=== PATIENT | female | born 1945 | race African-American/Black ===

== ENCOUNTER → 2017-09-25 | Outpatient (CLI) | payer BC ==
[~2017-09-25] MED LIST: BUPIVACAINE MPF 0.25% 10 ML VIAL.; IOHEXOL 180 MG/ML 10 ML VIAL.; methylPREDNISolone ACETATE 80 MG/ML VIAL.
== END ==
LOC: PNCL 12:44
DX: M16.11 Unilateral primary osteoarthritis, right hip (principal); E11.9 Type 2 diabetes mellitus without complications; I10 Essential (primary) hypertension; M19.90 Unspecified osteoarthritis, unspecified site
CPT/HCPCS: 20610; J1040; J3490; Q9965

== ENCOUNTER → 2017-12-13 | Outpatient (CLI) | payer BC ==
[~2017-12-13] MED LIST changes: +LIDOCAINE 1% PF 2 ML VIAL.
== END | disposition home or self-care (01) ==
LOC: PNCL 10:13
DX: M16.11 Unilateral primary osteoarthritis, right hip (principal); I10 Essential (primary) hypertension; E11.9 Type 2 diabetes mellitus without complications; Z79.84 Long term (current) use of oral hypoglycemic drugs; Z79.899 Other long term (current) drug therapy
CPT/HCPCS: 20610; 77002; J1040; J3490; Q9965

== ENCOUNTER → 2018-04-01 | Outpatient (CLI) | payer BC ==
[~2018-04-01] MED LIST changes: -BUPIVACAINE MPF 0.25% 10 ML VIAL.; +BUPIVACAINE MPF 0.25% 10 ML VIAL. ONE; +CHOL10003 PO; +DEXA5DRO OP; +DILT120C80 PO; +GLIP10TA13 PO; +GLIP5TAB10 PO; +GLUC100018 PO; -IOHEXOL 180 MG/ML 10 ML VIAL.; +IOHEXOL 180 MG/ML 10 ML VIAL. ONE; +LATA2.5D3 EACHEYE; -LIDOCAINE 1% PF 2 ML VIAL.; +LIDOCAINE 1% PF 2 ML VIAL. ONE; +LOSA100T7 PO; +METF10007 PO; +MULT1TAB52 PO; +PIOG30TA41 PO; +TIMO10DR5 EACHEYE; +TURM500C7 PO; -methylPREDNISolone ACETATE 80 MG/ML VIAL.; +methylPREDNISolone ACETATE 80 MG/ML VIAL. ONE
--- NOTE | 2018-04-01 19:57 | PAIN ---
DATE OF SERVICE: 04/01/2018 DIAGNOSES: Right hip joint pain with primary osteoarthritis, right hip joint. HISTORY OF PRESENT ILLNESS: The patient is a 73-year-old female who returns for followup status post right hip joint injection, last seen on 12/13/2017. The patient did very well with about an 80% improvement as she did with the first injection back in September. The patient reports the pain has been returning now with walking, standing, especially with putting all of her weight on her right side such as stepping on a stair or climbing on a curb. The patient reports it is becoming more noticeable with walking and standing. She was doing very well that is both with better ability to walk, stand, to household functions and activities with greater ease and comfort, but the pain is returning now to a moderate extent. The patient reports it is an 8 on a scale of 10 at its worst, 8 on average, 6 at its least and is an 8 today. The patient reports it is aching, dull, shooting, sharp, tight, sometimes cramping and stabbing, radiating to the right anterior groin with walking as well, better with sitting or lying down. It does not awaken the patient from sleep at all. The patient reports no new motor or sensory deficits, no new changes. PHYSICAL EXAMINATION: VITAL SIGNS: The patient's blood pressure is 134/81, pulse is 87, respirations are 18, temperature 98.0 degrees Fahrenheit, height is 5 feet 2 inches, weight is 197 pounds. GENERAL: The patient is awake, alert, oriented, appropriate, very pleasant demeanor. HEENT: Head is normocephalic, atraumatic. Extraocular movements intact and symmetrical. Oral cavity: Mucous membranes moist and pink. Dentition is intact. NECK: Shows anterior throat supple without palpable lymphadenopathy noted. Swallow reflex symmetrical. CHEST: Shows normal on inspection. Breath sounds clear to auscultation bilaterally. HEART: Shows S1, S2 clear. No murmurs auscultated. ABDOMEN: Soft, nontender, nondistended. No palpable organomegaly is noted. No rebound or guarding demonstrated. BACK: Shows spine grossly in the midline. Slight exaggeration of thoracic kyphosis and minor flattening of lumbar lordotic curvature. Lumbar paraspinous muscle shows symmetrical on inspection. On palpation shows some moderate tenderness only diffusely in the low lumbar distribution without significant radiation. The patient has good rotational motion of lumbar spine, both laterally as well as extension and flexion without difficulty. EXTREMITIES: The patient's lower extremities show deep tendon reflexes at 1+ in the patellar and tendo calcaneus tendons are equal. Motor exam is strong with 5/5 dorsiflexion, extension, quadriceps and hamstring flexion. Peripheral pulses are 1+ posterior tibia. No peripheral edema is noted bilaterally. The patient's right hip shows some moderate tenderness with palpation over the right greater trochanter, but only diffusely with weightbearing shows significant tenderness reported in the right hip and groin. Homero's maneuvers is positive on the right, but negative on the left. PLAN: Options were discussed with the patient. The patient's old chart was reviewed as her current medication regimen updated. Current review of systems updated today as well. We will proceed with a right intraarticular hip joint injection today with fluoroscopic guidance. Risks were again discussed including, but not limited to bleeding, infection, possibility of intravascular injection sequelae, spread of local anesthetic and numbness, side effects of steroid medication, exposure to fluoroscopy as well as poor results regarding pain control. The patient understands and wished to proceed. The patient is to return to clinic in approximately 2 weeks for followup. She was counseled to return appointment, activity level and side effects to be aware of. DIAGNOSES: Primary osteoarthritis, right hip joint with right hip joint pain. PROCEDURE: Right intraarticular hip joint injection using C-arm fluoroscopic guidance under sterile prep and drape using local anesthetic. MEDICATION INJECTED: A total of 80 mg Depo-Medrol plus 3 mL of 0.25% bupivacaine and 3 mL of Isovue for contrast. CONDITION AT DISCHARGE: Stable. The patient tolerated the procedure well, had no complications. LEIF MITCHELL MD DR: MATI/hafsa JOB#: [id number] / [id number]
== END | disposition home or self-care (01) ==
LOC: PNCL 08:09
PROVIDERS: ATTEND Anesthesiology
DX: M16.11 Unilateral primary osteoarthritis, right hip (principal)
CPT/HCPCS: 20610; 77002; J1040; J3490; Q9965

== ENCOUNTER → 2018-07-17 | Day surgery (SDC) | payer BC ==
[~2018-07-17] MED LIST changes: -BUPIVACAINE MPF 0.25% 10 ML VIAL. ONE; -DILT120C80 PO; +DILT120C85 PO; +HYDROmorphone 2 MG/ML VIAL IV PRN; -IOHEXOL 180 MG/ML 10 ML VIAL. ONE; +IV RINGERS,LACTATED 1000ML 1,000 ML IV SCH; +LIDOCAINE 1% PF 2 ML VIAL. ID PRN; -LIDOCAINE 1% PF 2 ML VIAL. ONE; +LOSA100T14 PO; -LOSA100T7 PO; +MORPHINE SULFATE 4 MG/ML VIAL. IV PRN; +ONDANSETRON PF 4 MG/2 ML VIAL. IV PRN; +PROCHLORPERAZINE 10 MG/2 ML VIAL. IV PRN; +PROPOFOL 20 ML IV ONE; +fentaNYL PF VIAL 100 MCG/2 ML VIAL IV PRN; -methylPREDNISolone ACETATE 80 MG/ML VIAL. ONE
[2018-07-17 08:11] VITALS: BP 150/67
== END | disposition home or self-care (01) ==
LOC: ENDOS 05:48
PROVIDERS: ATTEND Internal Medicine Gastroenterology
DX: K57.30 Diverticulosis of large intestine without perforation or abscess without bleeding (principal); K64.0 First degree hemorrhoids; E11.9 Type 2 diabetes mellitus without complications; M19.90 Unspecified osteoarthritis, unspecified site; Z72.0 Tobacco use; Z79.4 Long term (current) use of insulin; Z79.899 Other long term (current) drug therapy; Z98.890 Other specified postprocedural states; Z79.84 Long term (current) use of oral hypoglycemic drugs
CPT/HCPCS: 45378; J2704

== ENCOUNTER → 2018-08-12 | Outpatient (CLI) | payer BC ==
[2018-07-17 08:11] VITALS: BP 150/67
[~2018-08-12] MED LIST changes: +ASPI-630 PO; +CALC-658 PO; +FERR325T14 PO; -HYDROmorphone 2 MG/ML VIAL IV PRN; -IV RINGERS,LACTATED 1000ML 1,000 ML IV SCH; -LIDOCAINE 1% PF 2 ML VIAL. ID PRN; -MORPHINE SULFATE 4 MG/ML VIAL. IV PRN; -ONDANSETRON PF 4 MG/2 ML VIAL. IV PRN; -PROCHLORPERAZINE 10 MG/2 ML VIAL. IV PRN; -PROPOFOL 20 ML IV ONE; +SENN-161 PO; -TIMO10DR5 EACHEYE; +TIMO10DR5 RIGHTEYE; +WARF7.5T45 PO; -fentaNYL PF VIAL 100 MCG/2 ML VIAL IV PRN
[2018-08-12 09:28] LABS: BASO # 0.1 x10^3/uL (0.0-0.2); BASO % 1 % (0-3); EOS # 0.2 x10^3/uL (0.0-0.7); EOS % 3 % (0-3); HEMATOCRIT 33.3 % (36.0-47.0); HEMOGLOBIN 10.4 g/dL (12.0-15.5); LYMPH # 2.2 x10^3/uL (1.0-4.8); LYMPH % 30 % (24-48); MEAN CORPUSCULAR HEMOGLOBIN 22 pg (25-35); MEAN CORPUSCULAR HGB CONC 31 g/dL (31-37); MEAN CORPUSCULAR VOLUME 71 fL (79-100); MONO # 0.9 x10^3/uL (0.0-1.1); MONO % 12 % (0-9); NEUT # 3.8 x10^3uL (1.8-7.7); NEUT % 53 % (31-73); PLATELET COUNT 265 x10^3/uL (140-400); RED BLOOD COUNT 4.69 x10^6/uL (3.50-5.40); RED CELL DISTRIBUTION WIDTH 14.3 % (11.5-14.5); WHITE BLOOD COUNT 7.2 x10^3/uL (4.0-11.0)
[2018-08-12 09:42] LABS: PROTHROMBIN TIME PATIENT 13.1 SEC (11.7-14.0)
[2018-08-12 10:06] LABS: ALBUMIN 3.4 g/dL (3.4-5.0); CALCIUM 9.2 mg/dL (8.5-10.1); CREATININE 1.1 mg/dL (0.6-1.0); GFR 59.1; POTASSIUM 4.1 mmol/L (3.5-5.1)
[2018-08-12 10:42] LABS: HYPOCHROMIA PRESENT; MICROCYTOSIS PRESENT; PLT ESTIMATE ADEQUATE (ADEQUATE)
[2018-08-12 12:32] LABS: BILIRUBIN,URINE NEGATIVE (NEG); CLARITY,URINE CLOUDY; COLOR,URINE YELLOW; NITRITE,URINE NEGATIVE (NEG); PH,URINE 7.5; PROTEIN,URINE NEGATIVE (NEG-TRACE); UROBILINOGEN,URINE 0.2 mg/dL (0.2 mg/dL)
[2018-08-12 12:42] LABS: BACTERIA,URINE FEW /HPF (0-FEW); RBC,URINE 0 /HPF (0-2); SQUAMOUS EPITHELIAL CELL,UR MANY /LPF
--- NOTE | 2018-08-12 12:55 | EKG ---
[facility] [address] [place] [address] Test Date: 2018-08-12 Test Time: 12:49:43 Pat Name: HAMIDA SANCHEZ Department: Room: Gender: F Group Activities Aide: : 1945 Requested By: NANNETTE BLANTON Order Number: [id number] Reading MD: Wander Gutiérrez Measurements Intervals [place] Rate: 91 P: 47 WA: 150 QRS: 17 QRSD: 74 T: 26 QT: 354 QTc: 443 Interpretive Statements SINUS RHYTHM NONSPECIFIC ST-T WAVE CHANGES. LEFT ATRIAL ABNORMALITY Electronically Signed On 08-19-2018 10:12:04 CDT by Wander Gutiérrez
--- NOTE | 2018-08-12 14:26 | RAD ---
EXAM: Chest, 2 views. HISTORY: Hypertension. Preoperative evaluation. COMPARISON: None. FINDINGS: 2 views of chest are obtained. There is no infiltrate, pleural effusion or pneumothorax. The heart is normal in size. There are incidental bilateral cervical ribs. IMPRESSION: No acute pulmonary finding. Electronically signed by: Danielle Bradford MD (08/12/2018 2:23 PM) [id number]
[2018-08-13 02:16] LABS: HEMOGLOBIN A1C 6.4 % (4.8-5.6)
== END | disposition home or self-care (01) ==
LOC: SURGPAT 12:44
PROVIDERS: ATTEND Orthopaedic Surgery
DX: R94.31 Abnormal electrocardiogram [ECG] [EKG] (principal); M16.11 Unilateral primary osteoarthritis, right hip; I10 Essential (primary) hypertension
CPT/HCPCS: 36415; 71046; 80048; 81001; 82040; 83036; 85025; 85610; 85651; 85730; 87086; 87641; 93005

== ENCOUNTER 2018-08-27 05:51 | Inpatient (IN) | payer BC ==
[~2018-08-27] VITALS: Ht 162.6 cm; Wt 93.4 kg
[2018-08-27] VITALS (8 sets, daily range): BP systolic 133–165; BP diastolic 56–78
[~2018-08-27 05:51] MED LIST changes: -SENN-161 PO; -WARF7.5T45 PO
[2018-08-27] MEDS ORDERED: TRANEXAMIC ACID 1,000 MG in IV NS 50ML -- 1ST BAG INJ ONE (06:00)
[2018-08-27] MEDS ORDERED: HYDROcodone/APAP 7.5/325MG 1 TAB TABLET PO PRN (06:00)
[2018-08-27] MEDS ORDERED: MORPHINE SULFATE 5 MG, KETOROLAC 30MG VIAL 30 MG, ROPIVacaine 0.5% PF 60 ML, EPINEPHrin... INT ART ONE ×5 (06:00)
[2018-08-27] MEDS ORDERED: MORPHINE SULFATE 2 MG/ML VIAL. IV PRN ×2 (07:00→08:00)
[2018-08-27] MEDS ORDERED: ONDANSETRON PF 4 MG/2 ML VIAL. IV PRN (07:00)
[2018-08-27] MEDS ORDERED: HYDROmorphone 2 MG/ML VIAL IV PRN (07:00)
[2018-08-27] MEDS ORDERED: fentaNYL PF VIAL 100 MCG/2 ML VIAL IV PRN ×3 (07:00→08:00)
[2018-08-27] MEDS ORDERED: PROCHLORPERAZINE 10 MG/2 ML VIAL. IV PRN (07:00)
[2018-08-27] MEDS ORDERED: IV RINGERS,LACTATED 1000ML 1,000 ML IV SCH (07:00)
[2018-08-27] MEDS ORDERED: PROPOFOL 20 ML IV ONE (07:07)
[2018-08-27] MEDS ORDERED: fentaNYL PF VIAL 100 MCG/2 ML VIAL ONE ×2 (07:07→10:14)
[2018-08-27] MEDS ORDERED: SUCCINYLCHOLINE 200 MG/10 ML VIAL. ONE (07:07)
[2018-08-27] MEDS ORDERED: LIDOCAINE 2% PF 5 ML VIAL. ONE (07:07)
[2018-08-27] MEDS ORDERED: ROCURONIUM 50 MG/5 ML VIAL. ONE (07:07)
[2018-08-27 07:13] LABS: PROTHROMBIN TIME PATIENT 13.2 SEC (11.7-14.0)
[2018-08-27] MEDS ORDERED: PROCHLORPERAZINE 5 MG TABLET. PO PRN (08:00)
[2018-08-27] MEDS ORDERED: diphenhydrAMINE 50 MG/ML VIAL IV PRN (08:00)
[2018-08-27] MEDS ORDERED: CALCIUM CARBONATE 500 MG TAB.CHEW PO PRN (08:00)
[2018-08-27] MEDS ORDERED: 0.9 % SODIUM CHLORIDE 10 ML DISP.SYRIN. IV PRN (08:00)
[2018-08-27] MEDS ORDERED: ZOLPIDEM 5 MG TABLET. PO PRN (08:00)
[2018-08-27] MEDS ORDERED: DEXTROSE 50% 25 GM / 50ML DISP.SYRIN. IV PRN (08:00)
[2018-08-27] MEDS ORDERED: TRANEXAMIC ACID 1,000 MG in IV NS 50ML -- 2ND BAG INJ ONE (08:00)
[2018-08-27] MEDS ORDERED: DEXAMETHASONE SOD PHOS 20 MG/5 ML VIAL. ONE (08:03)
[2018-08-27] MEDS ORDERED: DESFLURANE 61 TO 120 MINUTES IH ONE (08:03)
[2018-08-27] MEDS ORDERED: ONDANSETRON PF 4 MG/2 ML VIAL. ONE (08:03)
[2018-08-27] MEDS ORDERED: PHENYLEPHRINE in 0.9% NACL PF 1 MG/10 ML SYRINGE. IV ONE (08:04)
--- NOTE | 2018-08-27 08:20 | HP ---
ADMIT DATE: 08/27/2018 CHIEF COMPLAINT: Right hip pain. HISTORY OF PRESENT ILLNESS: The patient has undergone several previous intra-articular injections of the right hip in the pain clinic, none of which have given her adequate relief. She has severe gait disturbances, uses a cane in the left hand already. Activity modification is not adequately controlling her pain. She is very limited in her activities of daily living and has pain on startup worse and also with ambulating for an extended period of time. She wishes to proceed with more definitive treatment. PAST MEDICAL HISTORY: Significant for diabetes, well controlled with oral medications; arthritis; cataracts; glaucoma; seasonal allergies and osteopenia. PAST SURGICAL HISTORY: ORIF of the left ankle and colonoscopy. FAMILY HISTORY: Really no significant problems. Mother was at 92 years old. Father from old age as well. SOCIAL HISTORY: She is a former smoker, quit about more than 10 years ago. She is . Denies alcohol or drug use. 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 MEDICATIONS: List is reviewed. ALLERGIES: INCLUDE AN INTOLERANCE TO JANUVIA. REVIEW OF SYSTEMS: Denies any chest pain, shortness of breath, recent fever, chills or other constitutional symptoms. PHYSICAL EXAMINATION: VITAL SIGNS: Per admission sheet. HEENT: Atraumatic, normocephalic. HEART: Regular rate and rhythm. LUNGS: Clear to auscultation bilaterally. ABDOMEN: Benign. EXTREMITIES: Examination of the right hip reveals decreased range of motion in all planes with pain on her already decreased range of motion extremes. Leg lengths are equal. Minimal tenderness over the trochanteric bursa. Normal examination of the contralateral hip, bilateral knees and ankles with intact motor function, distal pulses, sensation, reflexes and skin in both lower extremities throughout. IMPRESSION: Degenerative joint disease, right hip. TREATMENT PLAN: I went over with her risks, benefits, postoperative course of total hip arthroplasty including the possibility of infection, premature wear or loosening, nerve or blood vessel damage, medical or other anesthetic complications among others. All her questions were answered, which was a review of what we previously covered in the clinic, she wishes to proceed with surgical evaluation and treatment, which will occur today with [facility] admission to follow. NANNETTE BLANTON MD DR: FLOR/hafsa JOB#: [id number] / [id number]
[2018-08-27] MEDS ORDERED: FAMOTIDINE 20 MG/2 ML VIAL ONE (08:57)
--- NOTE | 2018-08-27 10:09 | PDOC4 ---
Operative Note Operative Note Date of surgery: 08/27/2018 Preoperative diagnosis: Degenerative joint disease right hip Postoperative diagnosis: Same Operative procedure: Right total hip arthroplasty Surgeon: Barbie Assist: Petey Johnson Anesthesia: Gen. Estimated blood loss: 200 mL Complications: None Specimens: Femoral head to pathology Operative indications: Tammy is a 73-year-old female with severe right hip pain unresponsive to nonoperative management which is detailed in my preoperative history and physical. We had gone through the risks benefits postoperative course of total hip arthroplasty including the possibility of infection leg length inequality premature wear or loosening instability nerve or blood vessel damage medical or other anesthetic competitions among others all her questions were answered she wishes to proceed with surgical evaluation and treatment Operative text: Patient was identified procedure verified patient placed in the supine position on the operating table. After adequate amounts of general anesthesia were administered she was placed decubitus position right side up and stabilized with the Stulberg hip positioner all bony prominences well- padded. The right hip was then prepped and draped in standard sterile fashion and after timeout was performed patient procedure identified and verified, the posterior approach was carried out to the right hip with a curvilinear incision centered over the greater trochanter dissection carried out down to the iliotibial band and gluteal fascia which were split in line with their fibers Charnley retractor was placed external rotators were divided and their insertion and the hip capsule was split in a T fashion. The acetabulum was exposed any residual labrum and contents of the fovea were excised reaming carried out up to a size 50 with the edge briefly touched with a size 51 and a size 52 [employer] coated hemispherical cluster hole stem was impacted in place in proper version a single screw was placed superiorly for excellent bite and a 36 mm standard liner was impacted. Reaming and broaching was carried out up to a size 12 to accommodate a Synergy type broach and stem. Trial fitting was accomplished and leg length and offset were restored with a -3.5 head 36 mm diameter. Excellent stability was noted trial components were removed and a size 12 Synergy stem standard offset was impacted in proper version with a -3.5 cobalt-chromium stem impacted to engage the El taper stability was noted to be equivalent to the trialing area leg lengths and offset were likewise restored. Thorough irrigation carried out normal saline solution a intra- articular catheter and Hemovac drain were placed intra-articular mixture was injected throughout the capsule and surgical site hip capsule was repaired with #5 Ethibond suture fascia closure with #1 PDS Stratafix suture. Subcutaneous closure with buried Vicryl suture subcuticular with 30 strata fix Monocryl a juju dressing was applied patient was returned recovery room in stable condition having tolerated procedure well. Petey Johnson nurse practitioner was present for the procedure and assisted in the prepping draping retraction and skin closure NANNETTE BLANTON MD Aug 27, 2018 10:09
--- NOTE | 2018-08-27 10:35 | RAD ---
Pelvis radiograph: 08/27/2018 7:54 AM. Reason for study: POST OP RIGHT HIP REPLACEMENT. Comparison: None. Technique: Single view of the pelvis provided. Findings: There are findings consistent with recent right total hip arthroplasty. Femoral and acetabular hardware is in good alignment and position. Immediate postsurgical changes within the regional soft tissues are noted. No complications are evident. Impression: Status post right total hip arthroplasty. Electronically signed by: Monet Arevalo MD (08/27/2018 10:32 AM) [id number]
[2018-08-27] MEDS ORDERED: INSULIN LISPRO 100 UNIT/ML 3ML VIAL. SQ ONE (10:45)
[2018-08-27] MEDS ORDERED: LABETALOL 20 MG/4 ML DISP.SYRIN. IVP PRN (10:45)
--- NOTE | 2018-08-27 11:46 | NUR ---
Rec'd from PACU per bed, alert & very drowsy, states discomfort level 9/10, falls back to sleep immediately, ice pack to right hip for comfort, bilateral AUSTIN hose & SCD's in place, IVF infusing into dorsal left hand, IAC capped, Hemovac to suction, oxygen @ 4L/nc, desats to 88% when sleeping, incentive spirometry inhales to 1000ml, oriented to room, call light in reach, siderails up x 2
[2018-08-27] MEDS ORDERED: IV NORMAL SALINE 1000ML BAG 1,000 ML IV SCH (12:00)
[2018-08-27] MEDS: ONDANSETRON ODT 4 MG TAB.RAPDIS. PO SCH ×2 (12:00→18:00)
[2018-08-27] MEDS: INSULIN LISPRO 300 UNITS/3 ML INSULN.PEN. SQ SCH ×2 (12:00→16:36)
[2018-08-27] MEDS: ONDANSETRON PF 4 MG/2 ML VIAL. IV SCH ×2 (12:00→18:00)
--- NOTE | 2018-08-27 12:00 | NUR ---
Zofran IV/oral held no nausea or vomiting observed, meal dose insulin held no calories consumed & sliding scale insulin given in PACU
[2018-08-27] MEDS ORDERED: WARFARIN 7.5 MG TABLET. PO ONE (16:00)
[2018-08-27] MEDS ORDERED: FERROUS SULFATE 325 MG TABLET. PO SCH (17:00)
[2018-08-27] MEDS: KETOROLAC 30MG VIAL 30 MG, BUPIVACAINE MPF 0.25% 20 ML, EPINEPHrine 0.5 MG in TOTAL VOL... INT ART SCH (18:06)
[2018-08-27] MEDS: glipiZIDE 5 MG TABLET PO SCH (20:48)
[2018-08-27] MEDS: TIMOLOL 0.5% OPHTH SOLUTION 5ML BOTTLE. OD SCH (20:50)
[2018-08-27] MEDS: LATANOPROST 0.005% OPHTH SOLUTION 2.5ML BOTTLE. OU SCH (20:56)
[2018-08-28 02:29] VITALS: BP 158/78
[2018-08-28 05:01] LABS: HEMATOCRIT 27.1 % (36.0-47.0); HEMOGLOBIN 8.4 g/dL (12.0-15.5)
[2018-08-28 05:07] LABS: PROTHROMBIN TIME PATIENT 14.4 SEC (11.7-14.0)
[2018-08-28 05:55] VITALS: BP 146/71
[2018-08-28] MEDS: ONDANSETRON PF 4 MG/2 ML VIAL. IV SCH ×2 (05:58)
[2018-08-28] MEDS: KETOROLAC 30MG VIAL 30 MG, BUPIVACAINE MPF 0.25% 20 ML, EPINEPHrine 0.5 MG in TOTAL VOL... INT ART SCH (05:58)
[2018-08-28] MEDS: ONDANSETRON ODT 4 MG TAB.RAPDIS. PO SCH ×2 (05:58)
[2018-08-28] MEDS ORDERED: MAGNESIUM HYDROXIDE 2,400 MG/30 ML ORAL.SUSP. PO PRN (06:00)
[2018-08-28] MEDS: metFORMIN 500 MG TABLET PO SCH ×2 (07:50→16:39)
[2018-08-28] MEDS: CALCIUM CARB/VIT D3 500/200 TABLET. PO SCH ×2 (07:50→16:39)
[2018-08-28] MEDS: glipiZIDE 5 MG TABLET PO SCH ×2 (07:50→16:40)
[2018-08-28] MEDS: FERROUS SULFATE 325 MG TABLET. PO SCH (07:50)
[2018-08-28] MEDS: PIOGLITAZONE 15 MG TABLET. PO SCH (07:51)
[2018-08-28] MEDS: SENNOSIDES/DOCUSATE 8.6/50MG TABLET. PO SCH (07:51)
[2018-08-28] MEDS: MULTIVITAMIN with MINERAL TABLET. PO SCH (07:51)
--- NOTE | 2018-08-28 07:52 | PDOC ---
ORTHO PROGRESS NOTES Subjective Patient doing well sitting up in chair at bedside eating breakfast. Post-op Day: 1 Procedure R CARLOS Vitals Vital Signs Date Time Temp Pulse Resp B/P (MAP) Pulse Ox O2 Delivery O2 Flow Rate FiO2 08/28/18 05:55 98.3 100 18 146/71 (96) 98 Nasal Cannula 3.0 98.3 Labs Laboratory Tests Test 08/27/18 06:40 08/27/18 06:41 08/27/18 10:17 08/27/18 16:26 Prothrombin Time 13.2 SEC (11.7-14.0) Prothromb Time International Ratio 1.0 (0.8-1.1) Activated Partial Thromboplast Time 31 SEC (24-38) Glucose (Fingerstick) 129 mg/dL (70-99) 242 mg/dL (70-99) 194 mg/dL (70-99) Test 08/27/18 20:47 08/28/18 04:15 08/28/18 06:54 Glucose (Fingerstick) 230 mg/dL (70-99) 137 mg/dL (70-99) Hemoglobin 8.4 g/dL (12.0-15.5) Hematocrit 27.1 % (36.0-47.0) Mean Corpuscular Hemoglobin Concent 31 g/dL (31-37) Prothrombin Time 14.4 SEC (11.7-14.0) Prothromb Time International Ratio 1.2 (0.8-1.1) Laboratory Tests Test 08/27/18 10:17 08/27/18 16:26 08/27/18 20:47 08/28/18 04:15 Glucose (Fingerstick) 242 mg/dL (70-99) 194 mg/dL (70-99) 230 mg/dL (70-99) Hemoglobin 8.4 g/dL (12.0-15.5) Hematocrit 27.1 % (36.0-47.0) Mean Corpuscular Hemoglobin Concent 31 g/dL (31-37) Prothrombin Time 14.4 SEC (11.7-14.0) Prothromb Time International Ratio 1.2 (0.8-1.1) Test 08/28/18 06:54 Glucose (Fingerstick) 137 mg/dL (70-99) Notes awake and alert Assessment and Plan POD # 1 S/P R CARLOS motor and sensory intact distally dressing dry and intact calf soft and nontender PT today BREANNA OSMAN APRN Aug 28, 2018 07:52
[2018-08-28] MEDS: LOSARTAN POTASSIUM 50 MG TABLET. PO SCH (07:55)
[2018-08-28] MEDS: INSULIN LISPRO 300 UNITS/3 ML INSULN.PEN. SQ SCH ×3 (07:59→17:00)
--- NOTE | 2018-08-28 08:00 | NUR ---
sitting up in chair. denies nausea and is rating her pain about a 1. she has good pulses, sensation and strength lower bilateral extremities. states she takes her cardizem at bedtime. will change. losartan given.
[2018-08-28] MEDS: TIMOLOL 0.5% OPHTH SOLUTION 5ML BOTTLE. OD SCH ×2 (08:14→21:08)
[2018-08-28] MEDS: ACETAMINOPHEN 500 MG TABLET PO SCH ×3 (09:00→21:08)
[2018-08-28] MEDS: HYDROcodone/APAP 7.5/325MG 1 TAB TABLET PO PRN ×3 (09:25→21:05)
--- NOTE | 2018-08-28 10:00 | NUR ---
family at bedside . medicated prior to going to therapy. am care completed
[2018-08-28] MEDS ORDERED: ONDANSETRON ODT 4 MG TAB.RAPDIS. PO PRN (12:00)
[2018-08-28] MEDS ORDERED: ONDANSETRON PF 4 MG/2 ML VIAL. IV PRN (12:00)
[2018-08-28] MEDS ORDERED: WARFARIN 5 MG TABLET. PO ONE (16:00)
[2018-08-28] MEDS ORDERED: BISACODYL 10 MG SUPP.RECT. PR PRN (16:00)
[2018-08-28 17:39] VITALS: BP 159/79
[2018-08-28] MEDS: LATANOPROST 0.005% OPHTH SOLUTION 2.5ML BOTTLE. OU SCH (21:05)
[2018-08-29] MEDS: ACETAMINOPHEN 500 MG TABLET PO SCH ×4 (03:18→21:00)
[2018-08-29] MEDS: HYDROcodone/APAP 7.5/325MG 1 TAB TABLET PO PRN ×3 (04:18→21:12)
[2018-08-29 04:31] LABS: HEMATOCRIT 26.3 % (36.0-47.0); HEMOGLOBIN 8.4 g/dL (12.0-15.5)
[2018-08-29 04:49] LABS: PROTHROMBIN TIME PATIENT 15.9 SEC (11.7-14.0)
[2018-08-29 05:07] VITALS: BP 137/70
[2018-08-29] MEDS: INSULIN LISPRO 300 UNITS/3 ML INSULN.PEN. SQ SCH ×3 (08:00→17:00)
[2018-08-29 08:05] VITALS: BP 146/74
[2018-08-29] MEDS: FERROUS SULFATE 325 MG TABLET. PO SCH (08:06)
[2018-08-29] MEDS: glipiZIDE 5 MG TABLET PO SCH ×2 (08:06→16:53)
[2018-08-29] MEDS: LOSARTAN POTASSIUM 50 MG TABLET. PO SCH (08:07)
[2018-08-29] MEDS: PIOGLITAZONE 15 MG TABLET. PO SCH (08:07)
[2018-08-29] MEDS: CALCIUM CARB/VIT D3 500/200 TABLET. PO SCH ×2 (08:07→18:40)
[2018-08-29] MEDS: SENNOSIDES/DOCUSATE 8.6/50MG TABLET. PO SCH (08:07)
[2018-08-29] MEDS: TIMOLOL 0.5% OPHTH SOLUTION 5ML BOTTLE. OD SCH ×2 (08:07→21:11)
[2018-08-29] MEDS: MULTIVITAMIN with MINERAL TABLET. PO SCH (08:07)
[2018-08-29] MEDS: metFORMIN 500 MG TABLET PO SCH ×2 (08:07→16:53)
--- NOTE | 2018-08-29 08:45 | NUR ---
O2 sat level 85% on room air, placed on 2l/nc, encouraged to continue using incentive spirometry and deep breath, agreeable
--- NOTE | 2018-08-29 11:19 | NUR ---
Pharmacy Warfarin Dosing Note S:Pharmacy consulted to assist with anticoagulation therapy started 08/26/18 with target INR: 1.6 - 2.5 O:HAMIDA SANCHEZ is a 73 year old F with CARLOS LABS: Last INR: 1.3 Last HGB: 8.4 Last HCT: 26.3 Last PLT: Last dose of 5 mg given on 08/28/18 at 1633 Previous Regimen: Vitamin K given: N Drug Interaction Changes: None Ongoing Drug Interactions: A:INR of 1.3 is below desired range. Target range for this patient is: 1.6 - 2.5 P: Warfarin dose: 6 mg Today at 1600 Bridge Therapy: None Next INR due IN AM Pharmacy anticoagulation service will continue to follow. ERNST BARAKAT [facility], 08/29/18 [id number]
[2018-08-29] MEDS ORDERED: WARFARIN 5 MG TABLET. PO ONE (16:00)
[2018-08-29] MEDS ORDERED: WARFARIN 3 MG TABLET. PO ONE (16:00)
--- NOTE | 2018-08-29 16:07 | PATHOLOGY ---
[facility] Accession Number: [id number] . 01 Material submitted: . RIGHT HIP BONE . 01 Clinical history: . DJD . 02 Diagnosis: Femoral head, right total hip arthroplasty: - Advanced degenerative arthritis. (JPM:[facility] 08/29/2018) QTP/08/29/2018 . 02 Electronically signed: . Trace Herring MD, Pathologist NPI- [id number] . 01 Gross description: . The specimen is received in formalin, labeled "Tammy Harley, right hip bone" and consists of a femoral head measuring 4.3 x 4.4 x 4.4 cm. The articular surface is harrison-brown and granular with multiple areas of eburnation. A few osteophytes are present. Sectioning reveals pink-yellow cut surfaces. A hardware supplies sales representative section is submitted in A1 following decalcification. (SDY; 08/27/2018) SYU/SYU . 02 Pathologist provided ICD-10: M16.12 . 02 CPT . 587541, 820152 Specimen Comment: A courtesy copy of this report has been sent to Specimen Comment: [phone], . Specimen Comment: Report sent to / DR ALONZO Specimen Comment: A duplicate report has been generated due to demographic updates. Performed at: [facility] [address], [place] [id number] MD Brendan Ortiz MD Phone: [phone] Performed at: 02 [facility] [address] [place], [place] [id number] MD Trace Herring MD Phone: [phone]
--- NOTE | 2018-08-29 16:39 | PDOC ---
PROGRESS NOTES Subjective Subjective Problems overnight:Ambulating well pain decreased Objective Vital Signs Vital Signs Date Time Temp Pulse Resp B/P (MAP) Pulse Ox O2 Delivery O2 Flow Rate FiO2 08/29/18 08:07 90 146/74 08/29/18 08:00 Nasal Cannula 2.0 08/29/18 05:07 98.8 18 100 98.8 Physical Exam juju intact Labs Laboratory Tests Test 08/27/18 20:47 08/28/18 04:15 08/28/18 06:54 08/28/18 11:37 Glucose (Fingerstick) 230 mg/dL (70-99) 137 mg/dL (70-99) 104 mg/dL (70-99) Hemoglobin 8.4 g/dL (12.0-15.5) Hematocrit 27.1 % (36.0-47.0) Mean Corpuscular Hemoglobin Concent 31 g/dL (31-37) Prothrombin Time 14.4 SEC (11.7-14.0) Prothromb Time International Ratio 1.2 (0.8-1.1) Test 08/28/18 16:37 08/28/18 21:03 08/29/18 04:05 08/29/18 06:17 Glucose (Fingerstick) 153 mg/dL (70-99) 112 mg/dL (70-99) 105 mg/dL (70-99) Hemoglobin 8.4 g/dL (12.0-15.5) Hematocrit 26.3 % (36.0-47.0) Mean Corpuscular Hemoglobin Concent 32 g/dL (31-37) Prothrombin Time 15.9 SEC (11.7-14.0) Prothromb Time International Ratio 1.3 (0.8-1.1) Test 08/29/18 11:52 Glucose (Fingerstick) 85 mg/dL (70-99) Laboratory Tests Test 08/28/18 16:37 08/28/18 21:03 08/29/18 04:05 08/29/18 06:17 Glucose (Fingerstick) 153 mg/dL (70-99) 112 mg/dL (70-99) 105 mg/dL (70-99) Hemoglobin 8.4 g/dL (12.0-15.5) Hematocrit 26.3 % (36.0-47.0) Mean Corpuscular Hemoglobin Concent 32 g/dL (31-37) Prothrombin Time 15.9 SEC (11.7-14.0) Prothromb Time International Ratio 1.3 (0.8-1.1) Test 08/29/18 11:52 Glucose (Fingerstick) 85 mg/dL (70-99) Assessment Assessment POD# [2], S/P [total hip] Plan Plan of Care WBAT, hip precautions Coumadin Placement on d/c NANNETTE BLANTON MD Aug 29, 2018 16:38
[2018-08-29 18:31] VITALS: BP 139/60
[2018-08-29] MEDS: LATANOPROST 0.005% OPHTH SOLUTION 2.5ML BOTTLE. OU SCH (21:10)
--- NOTE | 2018-08-30 02:30 | NUR ---
Lortab given per request. Ambulating w/o difficulty. ZACK dressing changed earlier due to saturation.
[2018-08-30] MEDS: HYDROcodone/APAP 7.5/325MG 1 TAB TABLET PO PRN ×3 (02:33→13:08)
[2018-08-30] MEDS: ACETAMINOPHEN 500 MG TABLET PO SCH ×3 (03:00→15:00)
[2018-08-30 04:45] LABS: HEMATOCRIT 26.1 % (36.0-47.0); HEMOGLOBIN 8.2 g/dL (12.0-15.5)
[2018-08-30 04:50] LABS: PROTHROMBIN TIME PATIENT 17.9 SEC (11.7-14.0)
[2018-08-30 05:30] VITALS: BP 116/56
--- NOTE | 2018-08-30 06:39 | NUR ---
FSBS 60. Denies s/sx hypoglycemia. 240cc OJ given. "Sometimes my sugar is pretty low in the morning."
--- NOTE | 2018-08-30 06:56 | NUR ---
FSBS 75. "I feel fine."
[2018-08-30] MEDS: INSULIN LISPRO 300 UNITS/3 ML INSULN.PEN. SQ SCH ×2 (08:00→12:00)
--- NOTE | 2018-08-30 08:00 | NUR ---
rests quietly in bed.does not have o2 on at this time. he is sating 91-92 %. she is looking forward to going home. she is getting a shower today with O.T. continues to rate her pain"2-3"
[2018-08-30] MEDS: glipiZIDE 5 MG TABLET PO SCH (08:26)
[2018-08-30] MEDS: FERROUS SULFATE 325 MG TABLET. PO SCH (08:26)
[2018-08-30] MEDS: metFORMIN 500 MG TABLET PO SCH (08:26)
[2018-08-30] MEDS: CALCIUM CARB/VIT D3 500/200 TABLET. PO SCH (08:27)
[2018-08-30] MEDS: SENNOSIDES/DOCUSATE 8.6/50MG TABLET. PO SCH (08:27)
[2018-08-30] MEDS: MULTIVITAMIN with MINERAL TABLET. PO SCH (08:27)
[2018-08-30] MEDS: PIOGLITAZONE 15 MG TABLET. PO SCH (08:27)
[2018-08-30] MEDS: LOSARTAN POTASSIUM 50 MG TABLET. PO SCH (08:28)
[2018-08-30] MEDS: TIMOLOL 0.5% OPHTH SOLUTION 5ML BOTTLE. OD SCH (08:33)
--- NOTE | 2018-08-30 12:30 | NUR ---
reviewed orally discharge instructions regarding care of her incision; taking Coumadin for 6 weeks and blood draws, taking iron and stool softener. she verbalized understanding of these. tolerated 1 st rehab session without need for o2
[2018-08-30 12:59] VITALS: BP 128/54
[2018-08-30] MEDS ORDERED: WARFARIN 3 MG TABLET. PO ONE (14:00)
[2018-08-30] MEDS ORDERED: WARF7.5T45 PO (14:16)
[2018-08-30] MEDS ORDERED: SENN-161 PO (14:16)
--- NOTE | 2018-08-30 15:29 | NUR ---
dismissed to home with scripts for pain medication and outpatient rehab. reviewed with present discharge instructions including follow up; medications , incisional care restrictions to activities of daily living such as bathing. 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
--- NOTE | 2018-08-31 03:56 | DS ---
DATE OF DISCHARGE: 08/30/2018 TYPE OF REPORT: Orthopedic discharge summary. PRINCIPAL DIAGNOSIS: Degenerative joint disease of the right hip. PROCEDURES: Include right total hip arthroplasty. DISPOSITION: Home with outpatient physical therapy. ACTIVITIES: Weightbearing as tolerated, standard total hip precautions, maintained ZACK dressing, replaced only if saturated otherwise cut dressing when suction machine quits and tape over. DISCHARGE INSTRUCTIONS: Report any redness, drainage, fever, chills, uncontrolled pain or other problems. Follow up Dr. Valentin in 2 weeks. BRIEF DESCRIPTION OF HOSPITAL COURSE: The patient underwent an uncomplicated total hip arthroplasty, did very well in terms of her pain control and progress with physical therapy, maintained medically stable throughout the hospital stay and progressed well with physical therapy safely in her activities of daily living. She was discharged home in stable condition. NANNETTE VALENTIN MD DR: FLOR/hafsa JOB#: [id number] / [id number]
== END 2018-08-30 15:30 | disposition home or self-care (01) | DRG 470 ==
LOC: OPSVCIP 05:51 → 4 SOUTHEST 11:17
PROVIDERS: ADMIT Orthopaedic Surgery; ATTEND Orthopaedic Surgery
PROC: 0SR902Z Replacement of Right Hip Joint with Metal on Polyethylene Synthetic Substitute, Open Approach (ICD-10-PCS; principal; 2018-08-27 07:30)
DX: M16.11 Unilateral primary osteoarthritis, right hip (principal); E11.9 Type 2 diabetes mellitus without complications; H40.9 Unspecified glaucoma; Z79.899 Other long term (current) drug therapy; Z88.8 Allergy status to other drugs, medicaments and biological substances; Z87.891 Personal history of nicotine dependence
CPT/HCPCS: 36415; 72170; 82962; 85014; 85018; 85610; 85730; 86850; 86900; 86901; 88304; 88311; A7015; J0171; J0330; J0696; J1100; J1815; J1885; J2001; J2270; J2370; J2405; J2704; J2795; J3010; J3490; J7030; J7120; 97116; 97150; 97530; 97535

== ENCOUNTER 2019-10-11 12:39 | Emergency (ER) | payer BC ==
[~2019-10-11] VITALS: Ht 157.5 cm; Wt 90.0 kg
[~2019-10-11 12:39] MED LIST changes: -DEXA5DRO OP; +DEXA5DRO11 OP; -DILT120C85 PO; +DILT120C99 PO; +SENN-161 PO; +WARF7.5T45 PO
[2019-10-11 13:00] VITALS: BP 166/73
--- NOTE | 2019-10-11 13:51 | PHYS DOC ---
Past Medical History Past Medical History: No Pertinent History Smoking Status: Former Smoker Alcohol Use: None General Adult EDM: Chief Complaint: WRIST PAIN HPI: HPI: Patient is a 74-year-old female who tripped and fell over some carpet at home landed on an extended wrist. She states she has had some swelling and pain to the wrist. She has been using ice and now the pain is much better. She states it does hurt when she flexes and extends her wrist. [] Review of Systems: Review of Systems: Constitutional: Denies fever or chills. [] Eyes: Denies change in visual acuity. [] HENT: Denies nasal congestion or sore throat. [] Respiratory: Denies cough or shortness of breath. [] Cardiovascular: Denies chest pain or edema. [] GI: Denies abdominal pain, nausea, vomiting, bloody stools or diarrhea. [] : Denies dysuria. [] Musculoskeletal: Per HPI [] Integument: Denies rash. [] Neurologic: Denies headache, focal weakness or sensory changes. [] Endocrine: Denies polyuria or polydipsia. [] Lymphatic: Denies swollen glands. [] Psychiatric: Denies depression or anxiety. [] Heart Score: Risk Factors: Risk Factors: DM, Current or recent (<one month) smoker, HTN, HLP, family history of CAD, obesity. Risk Scores: Score 0 - 3: 2.5% MACE over next 6 weeks - Discharge Home Score 4 - 6: 20.3% MACE over next 6 weeks - Admit for Clinical Observation Score 7 - 10: 72.7% MACE over next 6 weeks - Early Invasive Strategies Allergies: Allergies: Allergies Coded Allergies Type Severity Reaction Last Updated Verified sitagliptin Adverse Reaction Intermediate 08/27/18 Yes Physical Exam: PE: Constitutional: Well developed, well nourished, no acute distress, non-toxic appearance. [] HENT: Normocephalic, atraumatic, bilateral external ears normal, oropharynx moist, no oral exudates, nose normal. [] Eyes: PERRLA, EOMI, conjunctiva normal, no discharge. [] Neck: Normal range of motion, no tenderness, supple, no stridor. [] Cardiovascular:Heart rate regular rhythm, no murmur [] Lungs & Thorax: Bilateral breath sounds clear to auscultation [] Abdomen: Bowel sounds normal, soft, no tenderness, no masses, no pulsatile masses. [] Skin: Warm, dry, no erythema, no rash. [] Back: No tenderness, no CVA tenderness. [] Extremities: Left wrist is [] Neurologic: Alert and oriented X 3, normal motor function, normal sensory function, no focal deficits noted. [] Psychologic: Affect normal, judgement normal, mood normal. [] Current Patient Data: Vital Signs: Vital Signs Date Time Temp Pulse Resp B/P (MAP) Pulse Ox O2 Delivery O2 Flow Rate FiO2 10/11/19 13:00 98.5 119 16 166/73 (104) 99 Room Air 98.5 EKG: EKG: [] Radiology/Procedures: Radiology/Procedures: [] Impression: REASON: FALL ONTO L WRIST, LEFT WRIST PAIN AND SWELLING PROCEDURE: WRIST 3V LEFT WRIST 3V LEFT DATE: 10/11/2019 1:27 PM INDICATION: Pain after falling COMPARISON: None. FINDINGS: Bones: Acute comminuted nondisplaced fracture of the distal radius with extension into the radiocarpal joint. Tiny age indeterminate ulnar styloid fracture fragment. Joints: Moderate degenerative changes of the triscaphe and radiocarpal joints. Mild degenerative changes elsewhere throughout. Miscellaneous: Soft tissue swelling about the wrist IMPRESSION: Acute nondisplaced distal radius fracture with intra-articular extension. Tiny age-indeterminate ulnar styloid fracture fragment. Course & Med Decision Making: Course & Med Decision Making Pertinent Labs and Imaging studies reviewed. (See chart for details) [] Dragon Disclaimer: Dragon Disclaimer: This electronic medical record was generated, in whole or in part, using a voice recognition dictation system. Departure Departure Impression: Primary Impression: Distal radius fracture, left Qualified Codes: S52.502A - Unspecified fracture of the lower end of left radius, initial encounter for closed fracture Disposition: 01 HOME, SELF-CARE Condition: STABLE Referrals: REI ALONZO MD (PCP) NANNETTE BLANTON MD Call for an appointment for follow-up of your wrist fracture Patient Instructions: Wrist Fracture Additional Instructions: You will need to wear the splint we applied today until you are cleared by an orthopedic surgeon. Scripts Hydrocodone/Apap 5-325 (NORCO 5-325 TABLET) 1 Each Tablet 1 TAB PO PRN Q6HRS PRN for PAIN, #15 TAB 0 Refills Prov: STEVE CARDONA DO 10/11/19 STEVE CARDONA DO October 11, 2019 13:51
--- NOTE | 2019-10-11 13:56 | RAD ---
WRIST 3V LEFT DATE: 10/11/2019 1:27 PM INDICATION: Pain after falling COMPARISON: None. FINDINGS: Bones: Acute comminuted nondisplaced fracture of the distal radius with extension into the radiocarpal joint. Tiny age indeterminate ulnar styloid fracture fragment. Joints: Moderate degenerative changes of the triscaphe and radiocarpal joints. Mild degenerative changes elsewhere throughout. Miscellaneous: Soft tissue swelling about the wrist IMPRESSION: Acute nondisplaced distal radius fracture with intra-articular extension. Tiny age-indeterminate ulnar styloid fracture fragment. Electronically signed by: Pepe Allen MD (10/11/2019 1:53 PM) LIN
[2019-10-11] MEDS ORDERED: HYDR-3164 PO (14:18)
== END 2019-10-11 14:30 | disposition home or self-care (01) ==
LOC: ER 12:39
DX: S52.502A Unspecified fracture of the lower end of left radius, initial encounter for closed fracture (principal); Z87.891 Personal history of nicotine dependence; Z88.8 Allergy status to other drugs, medicaments and biological substances; W01.0XXA Fall on same level from slipping, tripping and stumbling without subsequent striking against object, initial encounter; Y93.89 Activity, other specified; Y92.89 Other specified places as the place of occurrence of the external cause; Y99.8 Other external cause status
CPT/HCPCS: 29125; 73110; 99284-25

== ENCOUNTER → 2021-06-20 | Outpatient (CLI) | payer BC ==
[~2021-06-20] MED LIST changes: +HYDR-3164 PO; +MULT-445 PO; -MULT1TAB52 PO
--- NOTE | 2021-06-20 16:38 | CARD ---
MR#: [id number] Date of Study: 06/20/2021 Ordering Physician: WANDER GUTIÉRREZ, Referring Physician: WANDER GUTIÉRREZ, Tech: Shama Grijalva [facility] APPROVED REPORT EXAM: Two-dimensional and M-mode echocardiogram with Doppler and color Doppler. Other Information Quality : Technically LimitedHR: 99bpm Rhythm : NSR INDICATION Mitral Valve Disease RISK FACTORS Hypertension Obesity Diabetes 2D DIMENSIONS RVDd4.2 (2.9-3.5cm)Left Atrium(2D)5.0 (1.6-4.0cm) IVSd1.3 (0.7-1.1cm)Aortic Root(2D)2.7 (2.0-3.7cm) LVDd3.7 (3.9-5.9cm)LVOT Diameter1.7 (1.8-2.4cm) PWd1.6 (0.7-1.1cm)LVDs2.1 (2.5-4.0cm) FS (%) 43.4 %SV45.0 ml Aortic Valve AoV Peak Mikael.178.4cm/sAoV VTI34.8cm AO Peak GR.12.7mmHgLVOT Peak Mikael.126.7cm/s AO Mean GR.6mmHgAVA (VMAX)1.68cm2 Mitral Valve MV E Cwonuwcs034.8cm/sMV E Peak Gr.25mmHg MV DECEL [id number] A Mnvodfsw755.6cm/s MV E Mean Gr.12mmHgE/A Ratio0.8 Pulmonary Valve PV Peak Kfpbwfeq30.9cm/s LEFT VENTRICLE The left ventricle is normal size. There is mild to moderate concentric left ventricular hypertrophy. The left ventricular systolic function is normal and the ejection fraction is within normal range. L V ejection fraction 55-60%. There is normal LV segmental wall motion. Transmitral Doppler flow patter n is Grade I-abnormal relaxation pattern. RIGHT VENTRICLE The right ventricle is normal size. The right ventricle is mildly hypertrophied. The right ventricula r systolic function is normal. ATRIA The left atrium is moderately dilated. The right atrium size is normal. The interatrial septum is int act with no evidence for an atrial septal defect or patent foramen ovale as noted on 2-D or Doppler i maging. AORTIC VALVE The aortic valve is normal in structure and function. Doppler and Color Flow revealed no significant aortic regurgitation. There is no significant aortic valvular stenosis. MITRAL VALVE The mitral valve is calcified and displays decreased opening. There is no evidence of mitral valve pr olapse. There is moderate mitral valve stenosis. Doppler and Color-flow revealed mild mitral regurgit ation. TRICUSPID VALVE The tricuspid valve is normal in structure and function. Doppler and Color Flow revealed trace tricus pid valve regurgitation. PULMONIC VALVE The pulmonary valve is normal in structure and function. Doppler and Color Flow revealed mild pulmoni c valvular regurgitation. GREAT VESSELS The aortic root is normal in size. The ascending aorta is normal in size. The IVC is normal in size a nd collapses >50% with inspiration. PERICARDIAL EFFUSION There is no evidence of significant pericardial effusion. Critical Notification Critical Value: No <Conclusion> The left ventricle is normal size. The left ventricular systolic function is normal and the ejection fraction is within normal range. LV ejection fraction 55-60%. There is mild to moderate concentric left ventricular hypertrophy. The left atrium is moderately dilated. Doppler and Color Flow revealed no significant aortic regurgitation. There is no significant aortic valvular stenosis. The mitral valve is calcified and displays decreased opening. There is moderate mitral valve stenosis. Doppler and Color-flow revealed mild mitral regurgitation. Doppler and Color Flow revealed trace tricuspid valve regurgitation. Signed by : Wander Gutiérrez MD Electronically Approved : 06/20/2021 16:38:16
== END ==
LOC: ECHO 12:16
PROVIDERS: ATTEND Internal Medicine Cardiovascular Disease
DX: I34.0 Nonrheumatic mitral (valve) insufficiency (principal); I37.1 Nonrheumatic pulmonary valve insufficiency; R01.1 Cardiac murmur, unspecified
CPT/HCPCS: 93306; C8929